=== PATIENT | male | born 1990 | race Caucasian/White ===

== ENCOUNTER 2020-07-16 10:04 | Emergency (ER) | payer SELFPAY ==
[2020-07-16 10:32] VITALS: BP 159/90; PULSE 92; RESP 20; TEMP 37.3; O2SAT 97; BMI 19.3
--- NOTE | 2020-07-16 11:06 | XR_ITS ---
EXAMINATION: XR ELBOW, LEFT XR FOREARM, LEFT XR HAND/WRIST, LEFT CLINICAL INFORMATION: Fall on Ani with pain and swelling to the left elbow, forearm, hand and wrist COMPARISON: None TECHNIQUE: 3 views of the left elbow. 2 views of the left forearm. 4 views of the left hand/wrist FINDINGS: Left elbow: There is no acute fractures seen. There is diffuse soft tissue swelling. There is question of elevation of the anterior fat pad which may represent a small joint effusion at the elbow. There is no elevation of the posterior fat pad. There is suggestion of subtle density anterior to the radial head and coracoid on the lateral view, which could represent ossification of uncertain origin Left forearm: No fracture or cortical disruption. Appropriate alignment. Mild soft tissue swelling. Left hand/wrist: There is no fracture or dislocation. Alignment is anatomic. Carpal rows are well aligned. Joint spaces are maintained. The soft tissues are unremarkable. XR/XR forearm LT 2V IMPRESSION: Soft tissue swelling at the left elbow/proximal forearm. Suggestion of a small elbow joint effusion, although no focal fracture is identified at the elbow. Occult fracture must be considered as there is suggestion of subtle ossification anteriorly at the elbow. If indicated CT could be obtained to further evaluate. No fracture or malalignment involving the left hand/wrist.
--- NOTE | 2020-07-16 11:06 | XR_ITS ---
EXAMINATION: XR ELBOW, LEFT XR FOREARM, LEFT XR HAND/WRIST, LEFT CLINICAL INFORMATION: Fall on Ani with pain and swelling to the left elbow, forearm, hand and wrist COMPARISON: None TECHNIQUE: 3 views of the left elbow. 2 views of the left forearm. 4 views of the left hand/wrist FINDINGS: Left elbow: There is no acute fractures seen. There is diffuse soft tissue swelling. There is question of elevation of the anterior fat pad which may represent a small joint effusion at the elbow. There is no elevation of the posterior fat pad. There is suggestion of subtle density anterior to the radial head and coracoid on the lateral view, which could represent ossification of uncertain origin Left forearm: No fracture or cortical disruption. Appropriate alignment. Mild soft tissue swelling. Left hand/wrist: There is no fracture or dislocation. Alignment is anatomic. Carpal rows are well aligned. Joint spaces are maintained. The soft tissues are unremarkable. XR/XR hand wrist LT IMPRESSION: Soft tissue swelling at the left elbow/proximal forearm. Suggestion of a small elbow joint effusion, although no focal fracture is identified at the elbow. Occult fracture must be considered as there is suggestion of subtle ossification anteriorly at the elbow. If indicated CT could be obtained to further evaluate. No fracture or malalignment involving the left hand/wrist.
--- NOTE | 2020-07-16 11:06 | XR_ITS ---
EXAMINATION: XR ELBOW, LEFT XR FOREARM, LEFT XR HAND/WRIST, LEFT CLINICAL INFORMATION: Fall on Ani with pain and swelling to the left elbow, forearm, hand and wrist COMPARISON: None TECHNIQUE: 3 views of the left elbow. 2 views of the left forearm. 4 views of the left hand/wrist FINDINGS: Left elbow: There is no acute fractures seen. There is diffuse soft tissue swelling. There is question of elevation of the anterior fat pad which may represent a small joint effusion at the elbow. There is no elevation of the posterior fat pad. There is suggestion of subtle density anterior to the radial head and coracoid on the lateral view, which could represent ossification of uncertain origin Left forearm: No fracture or cortical disruption. Appropriate alignment. Mild soft tissue swelling. Left hand/wrist: There is no fracture or dislocation. Alignment is anatomic. Carpal rows are well aligned. Joint spaces are maintained. The soft tissues are unremarkable. XR/XR elbow LT min 3V IMPRESSION: Soft tissue swelling at the left elbow/proximal forearm. Suggestion of a small elbow joint effusion, although no focal fracture is identified at the elbow. Occult fracture must be considered as there is suggestion of subtle ossification anteriorly at the elbow. If indicated CT could be obtained to further evaluate. No fracture or malalignment involving the left hand/wrist.
[2020-07-16] MEDS: Ibuprofen 800 MG TABLET PO (11:32)
--- NOTE | 2020-07-16 11:42 | US_ITS ---
EXAMINATION: DUPLEX VENOUS ULTRASOUND OF THE LEFT UPPER EXTREMITY. CLINICAL HISTORY: History of fall with ongoing pain and swelling of the left arm. Evaluate for DVT. COMPARISON: Left elbow radiographs on 07/16/2020 TECHNIQUE: Grayscale, color and Doppler ultrasound of the deep veins of the left upper extremity were performed. FINDINGS: The left internal jugular, axillary, and brachial veins are easily compressible and demonstrate normal color flow. The left subclavian vein demonstrates normal color flow. Of note, there are duplicated left brachial arteries. The basilic and cephalic veins are easily compressible and demonstrate normal color flow. The radial and ulnar veins are patent. There is a moderate-sized heterogeneous left elbow effusion. US/US venous duplex UE LT IMPRESSION: No evidence of deep venous thrombosis involving the left upper extremity. Moderate, heterogeneous left elbow effusion.
--- NOTE | 2020-07-16 11:45 | ED.EXTPRO ---
HPI - Extremity Problem General Chief complaint: Extremity Injury, Upper Stated complaint: FELL DOWN STAIRS ELBOW AND HAND PAIN Time Seen by Provider: 07/16/20 11:05 Source: patient Mode of arrival: ambulatory Limitations: no limitations History of Present Illness HPI Narrative: A 30-year-old male presenting to the ED with complaints of left elbow / forearm/ wrist /hand pain after he fell down the stairs on Monday. Reports he tripped over a shoe went down 12 stairs while on his left arm. Denies head injury or loss of consciousness. Denies being on any blood thinners. Denies any additional complaints or concerns or injuries at this time. Related Data Previous Rx's Medication Instructions Recorded ibuprofen 800 mg PO Q8H PRN #14 tab 07/16/20 oxycodone-acetaminophen [Percocet] 1 tab PO Q6H PRN #14 tab 07/16/20 Allergies Allergy/AdvReac Type Severity Reaction Status Date / Time No Known Allergies Allergy Verified 07/16/20 11:06 Review of Systems Review of Systems: Constitutional : No changes in activity, No lethargy, No recent prior head injury, No agitation, No increased fussiness ENT/Mouth : No Ear Pain, No Nasal discharge/drainage Eyes: No Eye Pain, No Swelling, No Redness, No Foreign Body, No Vision Changes Cardiovascular : No Chest Pain, No SOB Respiratory : No Cough Gastrointestinal : No Nausea, No Vomiting, No abdominal Pain Genitourinary : No Dysuria, No Urinary Frequency, No Urinary Incontinence, No Urgency, No Flank Pain Musculoskeletal : + joint pain, No neck stiffness, No back pain/injury Skin : No lacerations Neuro : No unsteady gait, No Paresthesias, No Loss of Consciousness, No altered mental status, No Headache Yes all other systems are reviewed and are negative [facility] Past Medical History Attestation statement: The following information was validated with the patient. Medical History No known health problems Social History Social History Advance Directives: No Advance Directives Information Provided: No Physical Exam Vital Signs: Vital Signs: Last Vital Signs Temp 99.1 F 07/16/20 10:32 Pulse 92 07/16/20 10:32 Resp 20 07/16/20 10:32 BP 159/90 H 07/16/20 10:32 Pulse Ox 97 07/16/20 10:32 Body Mass Index 19.3 vital signs have been reviewed as normal and appeared to be correct. Blood pressure normal. Heart rate normal. Respiration rate normal. Temperature normal. Oxygen saturation normal. Appearance: Alert. Oriented X3. No acute distress. Head: Normal external exam. Normocephalic. Atraumatic. No Steen signs noted. No raccoon eyes noted Eyes: PERRLA. EOMI. Conjunctiva and sclera normal. Eyelids normal. ENT: EAC normal. TM's Normal. Pharynx normal. Uvula midline. Moist mucous membranes. No trismus noted. No drooling noted. No muffled voice noted. Neck: Normal inspection. Neck supple. FROM. No adenopathy. Thyroid Normal. No meningeal signs. No neck mass noted. CVS: Normal heart rate and rhythm. Heart sound normal. No murmurs noted. Pulses normal throughout. Respiratory: No respiratory distress. Painless inspiration. Breath sounds normal. No wheezes/rales/rhonchi noted. Chest nontender. No accessory muscle usage noted or decreased air movement noted. Abdomen: Soft and nontender. Bowel sounds normal in all 4 quadrants. No distention noted. No organomegaly noted. No visible injury noted. Back: No CVA tenderness. Full range of motion noted. Skin: Skin warm and dry. Normal skin color. Normal skin turgor. No rashes/lesions/lacerations noted. Extremities: left elbow c moderate Soft tissue swelling, ecchymosis, and tenderness to palpation diffusely around the entire elbow medially and laterally especially at the olecranon. With limited range of motion for flexion and extension due to pain. Tender to palpation of proximal and distal forearm with ecchymosis noted no obvious deformities noted. Tender to palpation of left wrist at the anatomical snuffbox with moderate soft tissue swelling and ecchymosis noted with limited range of motion due to pain. No obvious deformities. All other Extremities exhibit normal range of motion and nontender. Neuro: Oriented X 3. No motor deficit. No sensory deficit. Reflexes normal. Course Course Course Narrative: 11:10am - 30-year-old male presenting to the ED with complaints of left elbow / forearm/ wrist /hand pain after he fell down the stairs on Monday. - obtain x-rays of left elbow/ forearm /wrist / hand if negative will obtain an ultrasound to evaluate for possible DVT if negative will place in a splint sugar-tong and instructions to follow-up with orthopedics and symptomatic treatment. Patient understands agrees with this plan. Procedures Orthopedic Splinting/Casting Injury #1: Side: left Upper Extremity Injury Location: upper arm Upper Extremity Immobilizer: sling/shoulder immobilizer MDM - Extremity (Nontraumatic) Medical Records Attestation: I reviewed the patient's medical records. Medical records narrative: FINDINGS: Left elbow: There is no acute fractures seen. There is diffuse soft tissue swelling. There is question of elevation of the anterior fat pad which may represent a small joint effusion at the elbow. There is no elevation of the posterior fat pad. There is suggestion of subtle density anterior to the radial head and coracoid on the lateral view, which could represent ossification of uncertain origin Left forearm: No fracture or cortical disruption. Appropriate alignment. Mild soft tissue swelling. Left hand/wrist: There is no fracture or dislocation. Alignment is anatomic. Carpal rows are well aligned. Joint spaces are maintained. The soft tissues are unremarkable. XR/XR elbow LT min 3V IMPRESSION: Soft tissue swelling at the left elbow/proximal forearm. Suggestion of a small elbow joint effusion, although no focal fracture is identified at the elbow. Occult fracture must be considered as there is suggestion of subtle ossification anteriorly at the elbow. If indicated CT could be obtained to further evaluate. No fracture or malalignment involving the left hand/wrist. Imaging Data venous duplex to left upper arm : Attestation: I personally reviewed and interpreted this imaging study as follows: Radiologist's impression: FINDINGS: The left internal jugular, axillary, and brachial veins are easily compressible and demonstrate normal color flow. The left subclavian vein demonstrates normal color flow. Of note, there are duplicated left brachial arteries. The basilic and cephalic veins are easily compressible and demonstrate normal color flow. The radial and ulnar veins are patent. There is a moderate-sized heterogeneous left elbow effusion. US/US venous duplex UE LT IMPRESSION: No evidence of deep venous thrombosis involving the left upper extremity. Moderate, heterogeneous left elbow effusion. Discharge Plan Discharge Clinical Impression: Sprain and strain of wrist, Fall (on) (from) other stairs and steps, initial encounter, Ecchymosis Elbow sprain Qualifiers: Encounter type: initial encounter Laterality: left Qualified Code(s): S53.402A - Unspecified sprain of left elbow, initial encounter Forearm sprain Qualifiers: Encounter type: initial encounter Laterality: left Qualified Code(s): S63.502A - Unspecified sprain of left wrist, initial encounter Hand sprain Qualifiers: Encounter type: initial encounter Laterality: left Qualified Code(s): S63.92XA - Sprain of unspecified part of left wrist and hand, initial encounter Joint effusion of elbow Qualifiers: Laterality: left Qualified Code(s): M25.422 - Effusion, left elbow Patient Disposition: Home, Self-Care Instructions: How to Use a Sling (ED), Elbow Sprain (ED) Prescriptions: New ibuprofen 800 mg tablet 800 mg PO Q8H PRN (Reason: pain) Qty: 14 RF: 0 oxycodone-acetaminophen [Percocet] 5-325 mg tablet 1 tab PO Q6H PRN (Reason: pain) Qty: 14 RF: 0 Referrals: Kita Baker MD [Physician] - 1 week Stand Alone Forms: Work/School Release Print Language: [place]ian
== END 2020-07-16 13:22 | disposition home or self-care (01) ==
PROVIDERS: Emergency Provider Emergency Medicine
DX: S53.402A Unspecified sprain of left elbow, initial encounter (principal); S63.502A Unspecified sprain of left wrist, initial encounter; S63.92XA Sprain of unspecified part of left wrist and hand, initial encounter; S60.212A Contusion of left wrist, initial encounter; S60.211A Contusion of right wrist, initial encounter; M79.602 Pain in left arm; M25.422 Effusion, left elbow; W10.9XXA Fall (on) (from) unspecified stairs and steps, initial encounter; Y93.9 Activity, unspecified; Y92.9 Unspecified place or not applicable; Y99.9 Unspecified external cause status
CPT/HCPCS: 29105; 73080; 73090; 73110; 73130; 93971; 99283; 99284

== ENCOUNTER 2022-01-28 17:24 | Emergency (ER) | payer SELFPAY ==
--- NOTE | 2022-01-28 | ECG_ITS ---
Test Reason : CHEST PAIN Blood Pressure : / mmHG Vent. Rate : 096 BPM Atrial Rate : 096 BPM P-R Int : 148 ms QRS Dur : 098 ms QT Int : 356 ms P-R-T Axes : 074 069 053 degrees QTc Int : 449 ms Sinus rhythm with occasional Premature ventricular complexes Incomplete right bundle branch block Nonspecific T wave abnormality Abnormal ECG No previous ECGs available Referred By: Generic ED Physician Electronically Signed By:COLETTE MAR MD
--- NOTE | ~2022-01-28 | XR_ITS ---
EXAMINATION: XR CHEST CLINICAL INFORMATION: Chest pain. COMPARISON: None TECHNIQUE: Frontal view of the chest was obtained. FINDINGS: No significant abnormality is noted involving the heart, lungs, mediastinum, bony thorax or soft tissues. XR/XR chest 1V IMPRESSION: No acute cardiopulmonary process.
[2022-01-28 17:33] VITALS: BP 153/118; PULSE 93; RESP 16; TEMP 36.7; O2SAT 97; BMI 21.9
[2022-01-28 17:49] LABS: Basophils Absolute Auto 0.1 X10*3/uL (0.0-0.2); Basophils Percent Auto 0.4 % (0-2); Eosinophils Absolute Auto 0.1 X10*3/uL (0.0-0.4); Eosinophils Percent Auto 0.5 % (0-4); Hematocrit 41.2 % (42.0-52.0); Imm Gran Abs Auto 0.03 X10*3/uL (0.00-0.03); Imm Gran Pct Auto 0.3 % (0.0-0.4); Lymphocytes Absolute Auto 1.1 X10*3/uL (1.2-4.9); Lymphocytes Percent Auto 9.2 % (20-40); MANUAL DIFF FLAG SCAN; Mean Corpuscular HGB Conc 36.4 g/dl (31.0-36.0); Mean Corpuscular Hemoglobin 29.8 pg (27.0-33.0); Mean Corpuscular Volume 81.7 fL (80.0-98.0); Mean Platelet Volume 9.9 fL (9.4-12.4); Monocytes Absolute Auto 1.6 X10*3/uL (0.1-1.2); Monocytes Percent Auto 13.7 % (2-11); Neutrophils Absolute Auto 8.8 x10*3/uL (2.0-8.3); Neutrophils Percent Auto 75.9 % (45-73); Platelet Count 267 X10*3/uL (160-400); Red Blood Count 5.04 X10*6/uL (4.60-5.80); SCAN SMEAR FLAG 1; White Blood Count 11.6 X10*3/uL (4.8-10.8)
[2022-01-28 18:04] VITALS: BP 167/103; PULSE 97; RESP 15; TEMP 37.2; O2SAT 99
[2022-01-28 18:12] LABS: Alanine Aminotransferase 45 U/L (0-40); Albumin Level 4.2 g/dL (3.5-5.0); Alkaline Phosphatase 78 U/L (39-117); Anion Gap 13 (12-20); Aspartate Amino Transferase 69 U/L (5-37); Bilirubin Total 1.3 mg/dL (0.0-1.0); Blood Urea Nitrogen 8 mg/dL (9-16); Calcium 10.2 mg/dL (8.4-10.2); Carbon Dioxide 27 mmol/L (22-29); Chloride 102 mmol/L (96-108); Creatinine Clr Calc Pharmacy 118.8; Estimated Glomerular Filt Rate > 60; Glucose Random 101 mg/dL (60-115); Potassium 3.9 mmol/L (3.3-5.1); Sodium 138 mmol/L (135-145); Total Protein 7.2 g/dL (6.5-8.0)
[2022-01-28 18:16] LABS: Troponin-I High Sensitivity < 3.5 ng/L (<3.5-35.0)
[2022-01-28 18:25] LABS: SLIDE REVIEW VERIFIED
--- NOTE | 2022-01-28 18:38 | ED_ITS ---
HPI - Arrhythmia/Palpitations General Chief Complaint: Chest Pain Stated Complaint: Unsteady/Rapid heart beat Time Seen by Provider: 01/28/22 18:26 Source: patient Mode of arrival: ambulatory Limitations: no limitations History of Present Illness HPI narrative: Patient's T of cocaine, alcohol, Adderall abuse with history of anxiety caffeine intake been complaining of palpitation for last 2 days says he had cocaine about 13 days ago and took Adderall about 4 days ago patient feel anxious heart rate goes fast no syncope no chest pain no shortness of breath last for few minutes Related Data Previous Rx's Medication Instructions Recorded ibuprofen 800 mg tablet 800 mg PO Q8H PRN #14 tab 07/16/20 oxycodone-acetaminophen 5 mg-325 1 tab PO Q6H PRN #14 tab 07/16/20 mg tablet (Percocet) Allergies Allergy/AdvReac Type Severity Reaction Status Date / Time No Known Allergies Allergy Verified 07/16/20 11:06 Review of Systems Review of Systems: Yes all other systems are reviewed and are negative PMFSH Past Medical History Medical History No known health problems Social History Social History Alcohol intake: current Alcohol intake frequency: 0-2 drinks per day Alcohol type: beer Patient Tobacco Use Status: Current everyday Tobacco user Smoked in Last 30 Days: Yes Substance Use Type: Crack/Cocaine, Marijuana and Other Substance Use Frequency: Occasionally Any prior treatment program specific to substance use: No Advance Directives: No Advance Directives Information Provided: No Physical Exam Vital Signs: Vital Signs: Last Vital Signs Temp 99.0 F 01/28/22 18:04 Pulse 97 01/28/22 18:04 Resp 15 01/28/22 18:04 BP 167/103 H 01/28/22 18:04 Pulse Ox 99 01/28/22 18:04 BMI result Body Mass Index 21.9 Appearance: Alert. Oriented X3. No acute distress. Anxious Eyes: PERRL ENT: Pharynx normal. Oral Mucosa moist Neck: Normal inspection. Neck supple. CVS: Normal heart rate and rhythm. Pulses normal. Respiratory: No respiratory distress. Equal air entry bilateral, no wheezing/rales/rhonchi Abdomen: Soft and nontender. Bowel sounds are present, no mass palpable, no CVA tenderness Skin: Skin warm and dry. Normal skin color. Normal skin turgor. Extremities: No lower extremity edema. No calf tenderness Neuro: Oriented X 3. No motor deficit. MDM - Arrhythmia/Palpitations MDM Narrative Medical decision making narrative: During stay in the ER no cardiac arrhythmias noticed patient is resting patient advised not to use alcohol/caffeine/Adderall/cocaine and follow-up with PCP for further monitoring Lab Data Attestation: I reviewed the patient's lab results. Result diagrams: 01/28/22 17:41 01/28/22 17:41 Labs: Lab Results 01/28/22 01/28/22 01/28/22 Range/Units 17:41 17:41 17:41 WBC 11.6 H (4.8-10.8) X10*3/uL RBC 5.04 (4.60-5.80) X10*6/uL Hgb 15.0 (14.0-18.0) g/dl Hct 41.2 L (42.0-52.0) % MCV 81.7 (80.0-98.0) fL MCH 29.8 (27.0-33.0) pg MCHC 36.4 H (31.0-36.0) g/dl RDW 13.0 (11.0-16.0) % Plt Count 267 (160-400) X10*3/uL MPV 9.9 (9.4-12.4) fL Immature Gran % (Auto) 0.3 (0.0-0.4) % Neut % (Auto) 75.9 H (45-73) % Lymph % (Auto) 9.2 L (20-40) % [place] % (Auto) 13.7 H (2-11) % Eos % (Auto) 0.5 (0-4) % Baso % (Auto) 0.4 (0-2) % Lymph # (Auto) 1.1 L (1.2-4.9) X10*3/uL [place] # (Auto) 1.6 H (0.1-1.2) X10*3/uL Eos # (Auto) 0.1 (0.0-0.4) X10*3/uL Baso # (Auto) 0.1 (0.0-0.2) X10*3/uL Abs Immat Gran (auto) 0.03 (0.00-0.03) X10*3/uL Absolute Neuts (auto) 8.8 H (2.0-8.3) x10*3/uL Absolute Nucleated RBC 0.000 (0.0-0.012) X10*3/uL Nucleated RBC % (auto) 0.0 (0.0-0.2) /100WBC Smear Tech's Comments VERIFIED Sodium 138 (135-145) mmol/L Potassium 3.9 (3.3-5.1) mmol/L Chloride 102 (96-108) mmol/L Carbon Dioxide 27 (22-29) mmol/L Anion Gap 13 (12-20) BUN 8 L (9-16) mg/dL Creatinine 0.95 (0.5-1.4) mg/dL Estim Creat Clear Calc 118.8 Estimated GFR > 60 Random Glucose 101 (60-115) mg/dL Calcium 10.2 (8.4-10.2) mg/dL Total Bilirubin 1.3 H (0.0-1.0) mg/dL AST 69 H (5-37) U/L ALT 45 H (0-40) U/L Alkaline Phosphatase 78 (39-117) U/L Troponin I High Sens < 3.5 (<3.5-35.0) ng/L Total Protein 7.2 (6.5-8.0) g/dL Albumin 4.2 (3.5-5.0) g/dL Ethyl Alcohol mg/dL COVID-19 (NIMISHA) (Negative) COVID-19 Clin Com 01/28/22 01/28/22 Range/Units 18:53 19:05 WBC (4.8-10.8) X10*3/uL RBC (4.60-5.80) X10*6/uL Hgb (14.0-18.0) g/dl Hct (42.0-52.0) % MCV (80.0-98.0) fL MCH (27.0-33.0) pg MCHC (31.0-36.0) g/dl RDW (11.0-16.0) % Plt Count (160-400) X10*3/uL MPV (9.4-12.4) fL Immature Gran % (Auto) (0.0-0.4) % Neut % (Auto) (45-73) % Lymph % (Auto) (20-40) % [place] % (Auto) (2-11) % Eos % (Auto) (0-4) % Baso % (Auto) (0-2) % Lymph # (Auto) (1.2-4.9) X10*3/uL [place] # (Auto) (0.1-1.2) X10*3/uL Eos # (Auto) (0.0-0.4) X10*3/uL Baso # (Auto) (0.0-0.2) X10*3/uL Abs Immat Gran (auto) (0.00-0.03) X10*3/uL Absolute Neuts (auto) (2.0-8.3) x10*3/uL Absolute Nucleated RBC (0.0-0.012) X10*3/uL Nucleated RBC % (auto) (0.0-0.2) /100WBC Smear Tech's Comments Sodium (135-145) mmol/L Potassium (3.3-5.1) mmol/L Chloride (96-108) mmol/L Carbon Dioxide (22-29) mmol/L Anion Gap (12-20) BUN (9-16) mg/dL Creatinine (0.5-1.4) mg/dL Estim Creat Clear Calc Estimated GFR Random Glucose (60-115) mg/dL Calcium (8.4-10.2) mg/dL Total Bilirubin (0.0-1.0) mg/dL AST (5-37) U/L ALT (0-40) U/L Alkaline Phosphatase (39-117) U/L Troponin I High Sens (<3.5-35.0) ng/L Total Protein (6.5-8.0) g/dL Albumin (3.5-5.0) g/dL Ethyl Alcohol < 10 mg/dL COVID-19 (NIMISHA) Negative (Negative) COVID-19 Clin Com See Note ECG Data Attestation: I personally reviewed and interpreted this ECG as follows: Interpretation: Normal sinus rhythm heart rate 96 beats per minute occasional PVC, normal axis no acute ST T wave changes no acute ischemia Discharge Plan Discharge Clinical Impression: Heart palpitations Patient Disposition: Home, Self-Care Instructions: Heart Palpitations (ED) Additional Instructions: Decrease caffeine intake do not use cocaine/alcohol/adderall Follow-up with PCP for further evaluation including Holter monitoring for palpitation Prescriptions: No Action ibuprofen 800 mg tablet 800 mg PO Q8H PRN (Reason: pain) Qty: 14 0RF oxycodone-acetaminophen [Percocet] 5-325 mg tablet 1 tab PO Q6H PRN (Reason: pain) Qty: 14 0RF Referrals: Lois Jones MD [Physician] - 1 week
[2022-01-28] MEDS: 0.9 % Sodium Chloride 1,000 ML 999 ML IV (19:03)
[2022-01-28 19:16] LABS: COVID-19 Test Negative (Negative); IDNOW Serial# 16C4AD1C
[2022-01-28 19:30] LABS: Ethanol < 10 mg/dL
== END 2022-01-28 20:57 | disposition home or self-care (01) ==
PROVIDERS: Emergency Provider Internal Medicine
DX: R00.2 Palpitations (principal); Z20.822 Contact with and (suspected) exposure to COVID-19
CPT/HCPCS: 36415; 71045; 80053; 82077; 84484; 85025; 87635; 93005; 96361; 96374; 99284

== ENCOUNTER 2022-02-28 04:48 | Emergency (ER) | payer SELFPAY ==
[2022-02-28 05:13] VITALS: BP 155/97; PULSE 107; RESP 17; TEMP 36.8; O2SAT 96; BMI 22.0
--- NOTE | 2022-02-28 05:28 | PC.NURSE ---
Dr Garcia to bedside. Pt's scalp irrigated; ~1inch lac noted to posterior aspect of head. Dr Garcia placed multiple alvin to pt's scalp. Pt tolerated procedure without incidence
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
[2022-02-28] MEDS: Diphth,Pertus(ACell),Tet Adult 0.5 ML SYRINGE IM (05:35)
== END 2022-02-28 05:52 | disposition home or self-care (01) ==
PROVIDERS: Emergency Provider Emergency Medicine
DX: F10.920 Alcohol use, unspecified with intoxication, uncomplicated (principal); Y90.9 Presence of alcohol in blood, level not specified; S01.01XA Laceration without foreign body of scalp, initial encounter; X99.0XXA Assault by sharp glass, initial encounter; F17.200 Nicotine dependence, unspecified, uncomplicated; Y93.01 Activity, walking, marching and hiking; Y92.480 Sidewalk as the place of occurrence of the external cause; Y99.8 Other external cause status
CPT/HCPCS: 12001; 90471; 90715; 99282; 99283; 99284

== ENCOUNTER 2022-03-10 19:03 | Emergency (ER) | payer SELFPAY | END 2022-03-10 21:04 | disposition left against medical advice (07) | PROVIDERS: Emergency Provider Emergency Medicine | DX: Z48.02 Encounter for removal of sutures (principal) ==

== ENCOUNTER 2022-03-11 21:44 | Emergency (ER) | payer SELFPAY ==
[2022-03-11 21:48] VITALS: BP 155/99; PULSE 93; RESP 18; TEMP 36.2; O2SAT 98; BMI 23.3
--- NOTE | 2022-03-12 00:42 | ED_ITS ---
HPI - Recheck/Abnormal Lab/Rx General Chief Complaint: Recheck/Abnormal Lab/Rx Stated Complaint: suture removal Time Seen by Provider: 03/12/22 00:33 Source: patient Mode of arrival: ambulatory Limitations: no limitations History of Present Illness HPI narrative: Patient to the emergency room for staple removal. Eleven days ago patient had a head injury, had 4 alvin applied. Patient has been healing well since then. Patient denies any symptoms. Patient states that the alvin are starting to itch, but reports no pain, no fever or chills. Related Data Previous Rx's Medication Instructions Recorded ibuprofen 800 mg tablet 800 mg PO Q8H PRN pain #14 tabs 07/16/20 oxycodone-acetaminophen 5 mg-325 1 tab PO Q6H PRN pain #14 tabs 07/16/20 mg tablet (Percocet) Allergies Allergy/AdvReac Type Severity Reaction Status Date / Time No Known Allergies Allergy Verified 07/16/20 11:06 Review of Systems Review of Systems: Constitutional : No Weight loss, No Fever, No Chills, No Night Sweats, No Fatigue, No Malaise ENT/Mouth : No Hearing loss, No Ear Pain, No Nasal Congestion, No Sinus Pain, No Hoarseness, No sore throat, No Rhinorrhea, No Swallowing Difficulty Eyes: No Eye Pain, No Swelling, No Redness, No Foreign Body, No Discharge, No Vision Changes Cardiovascular : No Chest Pain, No SOB, No Dyspnea on Exertion, No Orthopnea, No Edema, No Palpitations Respiratory : No Cough, No Sputum, No Wheezing, No Smoke Exposure, No Dyspnea Gastrointestinal : No Nausea, No Vomiting, No Diarrhea, No Constipation, No abdominal Pain, No Hematochezia, No Melena Genitourinary : no irregular bleeding, No Dysuria, No Urinary Frequency, No Hematuria, No Urinary Incontinence, No Urgency, No Flank Pain, No Urinary Flow Changes, No Hesitancy Musculoskeletal : No joint pain, No Myalgias, No Joint Swelling Skin : Healing scalp laceration Neuro : No Weakness, No Numbness, No Paresthesias, No Loss of Consciousness, No Dizziness, No Headache Psych : No Anxiety/Panic, No Depression, No SI/HI/AH/VH, No Social Issues, Heme/Lymph: No Bruising, No Bleeding,No Lymphadenopathy Endocrine : No Polyuria, No Polydipsia, No Temperature Intolerance PMFSH Past Medical History Medical History No known health problems Social History Social History Alcohol intake: current Alcohol intake frequency: 0-2 drinks per day Alcohol ty pe: beer Patient Tobacco Use Status: Current everyday Tobacco user Substance Use Type: Crack/Cocaine, Marijuana and Other Physical Exam Vital Signs: Vital Signs: Last Vital Signs Temp 97.2 F 03/11/22 21:48 Pulse 93 03/11/22 21:48 Resp 18 03/11/22 21:48 BP 155/99 H 03/11/22 21:48 Pulse Ox 98 03/11/22 21:48 O2 Del Method 03/11/22 21:48 BMI result Body Mass Index 23.3 Const: Other: Appearance: Alert. Oriented X3. No acute distress. Eyes: Pupils equal, round and reactive to light. ENT: Pharynx normal. Neck: Normal inspection. Neck supple. No lymph nodes noted. No crepitus CVS: Normal heart rate and rhythm. Pulses normal. Normal S1 and S2 Respiratory: No respiratory distress. Breath sounds normal. No Wheezing. No rales Abdomen: Soft and nontender. No rigidity. No distention. Skin: Skin warm and dry. Scalp is seen, there is dry blood around the alvin, erythema Extremities: No lower extremity edema. No Lacerations. No Rash Neuro: Oriented X 3. No motor deficit. No sensory deficit. Moving all extremities. No slurred speech. CN 2 through 12 grossly intact Psych: calm, cooperative, normal affect Course Course Course Narrative: For alvin were removed uneventfully Discharge Plan Discharge Clinical Impression: Removal of staple Patient Disposition: Home, Self-Care Instructions: Head Laceration (ED) Additional Instructions: Please follow-up with your primary care physician tomorrow. If you have any worsening or new symptoms, please return to the emergency room or call 911 Prescriptions: No Action ibuprofen 800 mg tablet 800 mg PO Q8H PRN (Reason: pain) Qty: 14 0RF oxycodone-acetaminophen [Percocet] 5-325 mg tablet 1 tab PO Q6H PRN (Reason: pain) Qty: 14 0RF
== END 2022-03-12 00:51 | disposition home or self-care (01) ==
PROVIDERS: Emergency Provider Emergency Medicine
DX: Z48.02 Encounter for removal of sutures (principal); S01.01XD Laceration without foreign body of scalp, subsequent encounter; X58.XXXD Exposure to other specified factors, subsequent encounter
CPT/HCPCS: 99282; 99283

== ENCOUNTER 2024-03-07 15:00 | Emergency (ER) | payer OTHER, SELFPAY ==
[2024-03-07 15:21] VITALS: BP 138/91; PULSE 115; RESP 16; TEMP 36.6; O2SAT 95; BMI 21.2
--- NOTE | 2024-03-07 15:29 | ECG_ITS ---
Test Reason : PALPITATIONS Blood Pressure : / mmHG Vent. Rate : 106 BPM Atrial Rate : 106 BPM P-R Int : 156 ms QRS Dur : 102 ms QT Int : 338 ms P-R-T Axes : -12 012 007 degrees QTc Int : 448 ms Sinus tachycardia Otherwise normal ECG When compared with ECG of 28-JAN-2022 17:34, Premature ventricular complexes are no longer Present Questionable change in QRS axis Referred By: Generic ED Physician Electronically Signed By:Prakash Padilla
--- NOTE | 2024-03-07 15:46 | ED.PSYCH ---
HPI - Psych General Chief Complaint: ETOH/Substance Use Stated Complaint: intoxicated, depression, mood swings Time Seen by Provider: 03/07/24 16:29 Source: patient Mode of arrival: ambulatory Limitations: no limitations History of Present Illness ED Provider: Dr. Mariel Ag HPI Narrative: Patient comes to the emergency room complaining alcohol intoxication. Patient was brought here by a friend, patient states that he is stool to be drinking heavily and wants to go to detox. Patient admits to having increasing depression, no SI or HI. No medical complaints Related Data Previous Rx's ?Medication ?Instructions ?Recorded ibuprofen 800 mg tablet 800 mg PO Q8H PRN pain #14 tabs 07/16/20 oxycodone-acetaminophen 5 mg-325 1 tab PO Q6H PRN pain #14 tabs 07/16/20 mg tablet (Percocet) Allergies Allergy/AdvReac Type Severity Reaction Status Date / Time No Known Allergies Allergy Verified 03/07/24 15:28 Review of Systems Review of Systems: Constitutional : No Weight loss, No Fever, No Chills, No Night Sweats, No Fatigue, No Malaise ENT/Mouth : No Hearing loss, No Ear Pain, No Nasal Congestion, No Sinus Pain, No Hoarseness, No sore throat, No Rhinorrhea, No Swallowing Difficulty Eyes: No Eye Pain, No Swelling, No Redness, No Foreign Body, No Discharge, No Vision Changes Cardiovascular : No Chest Pain, No SOB, No Dyspnea on Exertion, No Orthopnea, No Edema, No Palpitations Respiratory : No Cough, No Sputum, No Wheezing, No Smoke Exposure, No Dyspnea Gastrointestinal : No Nausea, No Vomiting, No Diarrhea, No Constipation, No abdominal Pain, No Hematochezia, No Melena Genitourinary : no irregular bleeding, No Dysuria, No Urinary Frequency, No Hematuria, No Urinary Incontinence, No Urgency, No Flank Pain, No Urinary Flow Changes, No Hesitancy Musculoskeletal : No joint pain, No Myalgias, No Joint Swelling Skin : No Skin Lesions, No rash Neuro : No Weakness, No Numbness, No Paresthesias, No Loss of Consciousness, No Dizziness, No Headache Psych : No Anxiety/Panic, complaining of increasing Depression, No SI/HI/AH/VH, admits to alcohol abuse Heme/Lymph: No Bruising, No Bleeding,No Lymphadenopathy Endocrine : No Polyuria, No Polydipsia, No Temperature Intolerance [facility] Past Medical History Medical History (Updated 03/08/24 @ 11:59 by Kacy Hernandez DO) Alcohol dependence Social History Social History Unable to assess alcohol history related to: Unknown Alcohol intake: current Alcohol intake frequency: 3 or more drinks per day Alcohol type: beer Patient Tobacco Use Status: Current everyday Tobacco user Smoked in Last 30 Days: Yes Use of substances other than those prescribed or required for medical reasons: Yes Substance Use Type: Marijuana Substance Use Frequency: Occasionally Last Used Substance: Days (ago) Any prior treatment program specific to substance use: No Advance Directives: No Advance Directives Information Provided: No Do you have a plan to hurt others: No Plan Physical Exam Vital Signs: Vital Signs: Last Vital Signs Temp 99 F 03/08/24 08:17 Pulse 76 03/08/24 08:17 Resp 16 03/08/24 08:17 BP 130/86 03/08/24 08:17 Pulse Ox 96 03/08/24 08:17 O2 Del Method Room Air 03/08/24 08:17 BMI result Body Mass Index 21.2 Const: Other: Appearance: Alert. Oriented X3. No acute distress. Coherent Eyes: Pupils equal, round and reactive to light. ENT: Pharynx normal. Neck: Normal inspection. Neck supple. No lymph nodes noted. No crepitus CVS: Normal heart rate and rhythm. Pulses normal. Normal S1 and S2 Respiratory: No respiratory distress. Breath sounds normal. No Wheezing. No rales Abdomen: Soft and nontender. No rigidity. No distention. Skin: Skin warm and dry. Normal skin color. Normal skin turgor. Extremities: No lower extremity edema. No Lacerations. No Rash Neuro: Oriented X 3. No motor deficit. No sensory deficit. Moving all extremities. No slurred speech. CN 2 through 12 grossly intact Psych: calm, cooperative, normal affect Course Course Course Narrative: This is a Rapid Medical Examination (RME) performed by David Mendoza PA-C in triage. Full HPI, ROS, assessment and treatment plan per primary provider in the Main ED. 33 yo male with history of ETOH use disorder who presents to the ER seeking detox. admits to drinking heavily over the last several weeks. not suicidal or homocidal but admits to worsening depression. steady on his feet. Plan: medical clearance and CARE team for detox placement Reevaluation(s) Reevaluation #1: Physician observation continued. VS stable, no acute events overnight pending addiction medicine team input. SUZIE 03/08/24 Reevaluation #2: observation care revealed that the patient does NOT meet psychiatric necessity for hospitalization. final disposition discussed with the patient. The patient completed observation care at 12pm. Total time in observation care was 9 hours. cleared by addiction medicine Medications Administered Discontinued Medications Generic Name Dose Route Start Last Admin Trade Name Jazmine PRN Reason Stop Dose Admin Ibuprofen 600 mg 03/08/24 11:44 03/08/24 11:46 Ibuprofen 600 Mg Tablet PO 03/08/24 11:45 600 mg ONCE ONE Administration Medical Decision Making Medical Decision Making [facility] Narrative: My interpretation of labs, normal hematology, at baseline chemistry, magnesium 2.3, urine toxicology negative, EtOH 352 -patient is here voluntarily, seeking detox -metabolize to freedom -once sober, the care team can help the patient find a bed for detox Differential Diagnosis Differential Diagnoses: The differential diagnosis associated with the presentation includes (Alcohol intoxication, alcohol dependence, polysubstance abuse, depression) Admission/Observation Consideration of admission/observation: Escalation of care including admission/observation considered (Patient waiting for the care team determine patient's disposition, patient may need help looking for a detox bed) Lab Data [facility] Lab Attestation statement: I reviewed the patient's lab results. 03/07/24 15:40 03/07/24 15:40 Labs: Lab Results 03/07/24 03/07/24 03/07/24 Range/Units 15:40 16:42 17:10 WBC 10.7 (4.8-10.8) X10*3/uL RBC 5.09 (4.60-5.80) X10*6/uL Hgb 13.9 L (14.0-18.0) g/dl Hct 41.7 L (42.0-52.0) % MCV 81.9 (80.0-98.0) fL MCH 27.3 (27.0-33.0) pg MCHC 33.3 (31.0-36.0) g/dl RDW 12.9 (11.0-16.0) % Plt Count 283 (160-400) X10*3/uL MPV 10.2 (9.4-12.4) fL Immature Gran % (Auto) 0.3 (0.0-0.4) % Neut % (Auto) 66.9 (45-73) % Lymph % (Auto) 21.5 (20-40) % [place] % (Auto) 8.9 (2-11) % Eos % (Auto) 1.7 (0-4) % Baso % (Auto) 0.7 (0-2) % Lymph # (Auto) 2.3 (1.2-4.9) X10*3/uL [place] # (Auto) 1.0 (0.1-1.2) X10*3/uL Eos # (Auto) 0.2 (0.0-0.4) X10*3/uL Baso # (Auto) 0.1 (0.0-0.2) X10*3/uL Abs Immat Gran (auto) 0.03 (0.00-0.03) X10*3/uL Absolute Neuts (auto) 7.2 (2.0-8.3) x10*3/uL Absolute Nucleated RBC 0.000 (0.0-0.012) X10*3/uL Nucleated RBC % (auto) 0.0 (0.0-0.2) /100WBC Smear Tech's Comments VERIFIED Sodium 141 (135-145) mmol/L Potassium 3.6 (3.3-5.1) mmol/L Chloride 107 (96-108) mmol/L Carbon Dioxide 25 (22-29) mmol/L Anion Gap 13 (12-20) BUN 9 (9-16) mg/dL Creatinine 0.85 (0.5-1.4) mg/dL Estim Creat Clear Calc 126.4 Estimated GFR > 60 Random Glucose 150 H (60-115) mg/dL Calcium 9.6 (8.4-10.2) mg/dL Magnesium 2.3 (1.6-2.6) mg/dL Total Bilirubin 0.7 (0.0-1.0) mg/dL AST 82 H (5-37) U/L ALT 50 H (0-40) U/L Alkaline Phosphatase 80 (39-117) U/L Total Protein 7.6 (6.5-8.0) g/dL Albumin 4.5 (3.5-5.0) g/dL Urine Opiates Screen Not Detected (Not Detect) Ur Buprenorphine Scrn Not Detected (Not Detect) ng/mL Ur Oxycodone Screen Not Detected (Not Detect) ng/mL Urine Methadone Screen Not Detected (Not Detect) ng/mL Urine Fentanyl Screen Not Detected (Not Detect) Ur Barbiturates Screen Not Detected (Not Detect) Ur Phencyclidine Scrn Not Detected (Not Detect) Ur Amphetamines Screen Not Detected (Not Detect) U Benzodiazepines Scrn Not Detected (Not Detect) Urine Cocaine Screen Not Detected (Not Detect) U Marijuana (THC) Screen Not Detected (Not Detect) Ethyl Alcohol 352 H* mg/dL Blood Type O Positive Antibody Screen NEGATIVE 03/07/24 Range/Units 17:11 WBC (4.8-10.8) X10*3/uL RBC (4.60-5.80) X10*6/uL Hgb (14.0-18.0) g/dl Hct (42.0-52.0) % MCV (80.0-98.0) fL MCH (27.0-33.0) pg MCHC (31.0-36.0) g/dl RDW (11.0-16.0) % Plt Count (160-400) X10*3/uL MPV (9.4-12.4) fL Immature Gran % (Auto) (0.0-0.4) % Neut % (Auto) (45-73) % Lymph % (Auto) (20-40) % [place] % (Auto) (2-11) % Eos % (Auto) (0-4) % Baso % (Auto) (0-2) % Lymph # (Auto) (1.2-4.9) X10*3/uL [place] # (Auto) (0.1-1.2) X10*3/uL Eos # (Auto) (0.0-0.4) X10*3/uL Baso # (Auto) (0.0-0.2) X10*3/uL Abs Immat Gran (auto) (0.00-0.03) X10*3/uL Absolute Neuts (auto) (2.0-8.3) x10*3/uL Absolute Nucleated RBC (0.0-0.012) X10*3/uL Nucleated RBC % (auto) (0.0-0.2) /100WBC Smear Tech's Comments Sodium (135-145) mmol/L Potassium (3.3-5.1) mmol/L Chloride (96-108) mmol/L Carbon Dioxide (22-29) mmol/L Anion Gap (12-20) BUN (9-16) mg/dL Creatinine (0.5-1.4) mg/dL Estim Creat Clear Calc Estimated GFR Random Glucose (60-115) mg/dL Calcium (8.4-10.2) mg/dL Magnesium (1.6-2.6) mg/dL Total Bilirubin (0.0-1.0) mg/dL AST (5-37) U/L ALT (0-40) U/L Alkaline Phosphatase (39-117) U/L Total Protein (6.5-8.0) g/dL Albumin (3.5-5.0) g/dL Urine Opiates Screen Not Detected (Not Detect) Ur Buprenorphine Scrn Not Detected (Not Detect) ng/mL Ur Oxycodone Screen Not Detected (Not Detect) ng/mL Urine Methadone Screen Not Detected (Not Detect) ng/mL Urine Fentanyl Screen Not Detected (Not Detect) Ur Barbiturates Screen Not Detected (Not Detect) Ur Phencyclidine Scrn Not Detected (Not Detect) Ur Amphetamines Screen Not Detected (Not Detect) U Benzodiazepines Scrn Not Detected (Not Detect) Urine Cocaine Screen Not Detected (Not Detect) U Marijuana (THC) Screen Not Detected (Not Detect) Ethyl Alcohol mg/dL Blood Type Antibody Screen Discharge Plan Discharge Clinical Impression: Alcohol dependence Patient Disposition: Home, Self-Care Instructions: Alcohol Dependence (ED) Additional Instructions: return for worsening symptoms or concerns. Prescriptions: No Action ibuprofen 800 mg tablet 800 mg PO Q8H PRN (Reason: pain) Qty: 14 0RF oxycodone-acetaminophen [Percocet] 5-325 mg tablet 1 tab PO Q6H PRN (Reason: pain) Qty: 14 0RF Print Language: Scottish
[2024-03-07 16:06] LABS: Alanine Aminotransferase 50 U/L (0-40); Albumin Level 4.5 g/dL (3.5-5.0); Alkaline Phosphatase 80 U/L (39-117); Anion Gap 13 (12-20); Aspartate Amino Transferase 82 U/L (5-37); Bilirubin Total 0.7 mg/dL (0.0-1.0); Blood Urea Nitrogen 9 mg/dL (9-16); Calcium 9.6 mg/dL (8.4-10.2); Carbon Dioxide 25 mmol/L (22-29); Chloride 107 mmol/L (96-108); Creatinine Clr Calc Pharmacy 126.4; Estimated Glomerular Filt Rate > 60; Glucose Random 150 mg/dL (60-115); Potassium 3.6 mmol/L (3.3-5.1); Sodium 141 mmol/L (135-145); Total Protein 7.6 g/dL (6.5-8.0)
[2024-03-07 16:54] VITALS: BP 139/90; PULSE 103; RESP 18; TEMP 37.3; O2SAT 96
[2024-03-07 17:08] LABS: Amphetamine Screen Urine Not Detected (Not Detect); Barbiturates, Urine Not Detected (Not Detect); Benzodiazepines Screen Urine Not Detected (Not Detect); Buprenorphine Scr Not Detected (Not Detect); Cannabinoid Screen Urine Not Detected (Not Detect); Cocaine Screen Urine Not Detected (Not Detect); Fentanyl, urine Not Detected (Not Detect); Methadone Screen, Urine Not Detected (Not Detect); Opiate Screen Urine Not Detected (Not Detect); Oxycodone Screen Urine Not Detected (Not Detect); Phencyclidine Screen Urine Not Detected (Not Detect)
[2024-03-07 17:11] LABS: Ethanol 352 mg/dL; Magnesium 2.3 mg/dL (1.6-2.6)
[2024-03-07 17:30] LABS: Amphetamine Screen Urine Not Detected (Not Detect); Barbiturates, Urine Not Detected (Not Detect); Benzodiazepines Screen Urine Not Detected (Not Detect); Buprenorphine Scr Not Detected (Not Detect); Cannabinoid Screen Urine Not Detected (Not Detect); Cocaine Screen Urine Not Detected (Not Detect); Fentanyl, urine Not Detected (Not Detect); Methadone Screen, Urine Not Detected (Not Detect); Opiate Screen Urine Not Detected (Not Detect); Oxycodone Screen Urine Not Detected (Not Detect); Phencyclidine Screen Urine Not Detected (Not Detect)
[2024-03-07 17:32] LABS: Basophils Absolute Auto 0.1 X10*3/uL (0.0-0.2); Basophils Percent Auto 0.7 % (0-2); Eosinophils Absolute Auto 0.2 X10*3/uL (0.0-0.4); Eosinophils Percent Auto 1.7 % (0-4); Hematocrit 41.7 % (42.0-52.0); Imm Gran Abs Auto 0.03 X10*3/uL (0.00-0.03); Imm Gran Pct Auto 0.3 % (0.0-0.4); Lymphocytes Absolute Auto 2.3 X10*3/uL (1.2-4.9); Lymphocytes Percent Auto 21.5 % (20-40); MANUAL DIFF FLAG SCAN; Mean Corpuscular Volume 81.9 fL (80.0-98.0); Mean Platelet Volume 10.2 fL (9.4-12.4); Monocytes Percent Auto 8.9 % (2-11); Neutrophils Absolute Auto 7.2 x10*3/uL (2.0-8.3); Neutrophils Percent Auto 66.9 % (45-73); Platelet Count 283 X10*3/uL (160-400); Red Blood Count 5.09 X10*6/uL (4.60-5.80); Red Cell Distribution Width 12.9 % (11.0-16.0); SCAN SMEAR FLAG 1; White Blood Count 10.7 X10*3/uL (4.8-10.8)
[2024-03-07 17:33] LABS: Hemoglobin 13.9 g/dl (14.0-18.0); Mean Corpuscular HGB Conc 33.3 g/dl (31.0-36.0); Mean Corpuscular Hemoglobin 27.3 pg (27.0-33.0)
[2024-03-07 17:35] LABS: SLIDE REVIEW VERIFIED
--- NOTE | 2024-03-07 18:01 | MHC.EDTECH ---
Addendum entered by Roberto Dela Cruz 03/07/24 18:03: pt belongings was placed in locker 6 Original Note: late entry, pt was changed over @1615, pt changed into hospital gown and pants, blood drawn for labs and type and screen, urine given.
[2024-03-07 20:51] VITALS: BP 121/76; PULSE 102; RESP 17; TEMP 36.9; O2SAT 95
[2024-03-08 02:55] VITALS: BP 143/95; PULSE 89; RESP 17; TEMP 36.9; O2SAT 95
--- NOTE | 2024-03-08 07:30 | PC.NURSE ---
pt awake and alert, ambulating with brisk steady gait, no tremors noted. pt is speaking in clear and even tones. awaiting eval by care team for detox placement.
[2024-03-08 08:17] VITALS: BP 130/86; PULSE 76; RESP 16; TEMP 37.2; O2SAT 96
--- NOTE | 2024-03-08 08:19 | MHC.RECOVRN ---
Pts referral sent to [facility].
--- NOTE | 2024-03-08 08:44 | PC.NURSE ---
pt was evaluated by care team, status is voluntary bed search for detox.
--- NOTE | 2024-03-08 09:34 | MHC.RECOVRN ---
Briefly met with pt in 6, pt laying in bed, eyes closed, wakes to voice but difficult to engage in conversation. Pt reports drinking 4 24 ounce beers daily off and on for years. Pt interested in [facility]. Currently being reviewed by [facility].
--- NOTE | 2024-03-08 11:36 | PC.NURSE ---
ASSUMED CARE OF THIS PT, CURRENTLY SLEEPING IN HIS ROOM, RESP EVEN, NONLABOURED.
[2024-03-08] MEDS: Ibuprofen 600 MG TABLET PO (11:46)
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
[2024-03-08 12:11] VITALS: BP 130/86; PULSE 76; RESP 16; TEMP 37.2; O2SAT 96
== END 2024-03-08 12:12 | disposition home or self-care (01) ==
PROVIDERS: Emergency Provider Emergency Medicine
DX: F10.20 Alcohol dependence, uncomplicated (principal); Y90.8 Blood alcohol level of 240 mg/100 ml or more; R00.2 Palpitations; F32.A Depression, unspecified
CPT/HCPCS: 36415; 80053; 80307; 83735; 85025; 86850; 86900; 86901; 93005; 99285

== ENCOUNTER → 2024-03-07 15:29 | Outpatient (BNV) | payer OTHER, SELFPAY | PROVIDERS: Emergency Provider Emergency Medicine; Visit Provider Internal Medicine Cardiovascular Disease | DX: R00.0 Tachycardia, unspecified (principal); R00.2 Palpitations | CPT/HCPCS: 93010 ==

== ENCOUNTER 2024-03-11 04:58 | Emergency (ER) | payer OTHER, SELFPAY ==
[2024-03-11 05:08] VITALS: BP 154/92; PULSE 113; RESP 18; O2SAT 98; BMI 26.6
--- NOTE | 2024-03-11 05:28 | ED_ITS ---
HPI - Alcohol General Chief Complaint: ETOH/Substance Use Stated Complaint: detox Time Seen by Provider: 03/11/24 05:34 Source: patient Mode of arrival: ambulatory Limitations: no limitations History of Present Illness ED Provider: Dr. Mariel Ag HPI narrative: Patient comes to the emergency room requesting detox. When patient arrived, I was informed by the patient's nurse the patient threw himself on the floor. Patient states that he threw himself on the floor wanting to get attention. When patient came in, patient states that he change his mind and no longer wants detox. Patient denies SI or HI Related Data Previous Rx's ?Medication ?Instructions ?Recorded ibuprofen 800 mg tablet 800 mg PO Q8H PRN pain #14 tabs 07/16/20 oxycodone-acetaminophen 5 mg-325 1 tab PO Q6H PRN pain #14 tabs 20 mg tablet (Percocet) Allergies Allergy/AdvReac Type Severity Reaction Status Date / Time No Known Allergies Allergy Verified 03/11/24 05:11 Review of Systems Review of Systems: Constitutional : No Weight loss, No Fever, No Chills, No Night Sweats, No Fatigue, No Malaise ENT/Mouth : No Hearing loss, No Ear Pain, No Nasal Congestion, No Sinus Pain, No Hoarseness, No sore throat, No Rhinorrhea, No Swallowing Difficulty Eyes: No Eye Pain, No Swelling, No Redness, No Foreign Body, No Discharge, No Vision Changes Cardiovascular : No Chest Pain, No SOB, No Dyspnea on Exertion, No Orthopnea, No Edema, No Palpitations Respiratory : No Cough, No Sputum, No Wheezing, No Smoke Exposure, No Dyspnea Gastrointestinal : No Nausea, No Vomiting, No Diarrhea, No Constipation, No abdominal Pain, No Hematochezia, No Melena Genitourinary : no irregular bleeding, No Dysuria, No Urinary Frequency, No Hematuria, No Urinary Incontinence, No Urgency, No Flank Pain, No Urinary Flow Changes, No Hesitancy Musculoskeletal : No joint pain, No Myalgias, No Joint Swelling Skin : No Skin Lesions, No rash Neuro : No Weakness, No Numbness, No Paresthesias, No Loss of Consciousness, No Dizziness, No Headache Psych : No Anxiety/Panic, No Depression, No SI/HI/AH/VH, admits to alcohol abuse Heme/Lymph: No Bruising, No Bleeding,No Lymphadenopathy Endocrine : No Polyuria, No Polydipsia, No Temperature Intolerance [facility] Past Medical History Medical History Alcohol dependence Social History Social History Unable to assess alcohol history related to: Unknown Alcohol intake: current Alcohol intake frequency: 3 or more drinks per day Alcohol type: beer Patient Tobacco Use Status: Current everyday Tobacco user Smoked in Last 30 Days: Yes Substance Use Type: Marijuana Advance Directives: No Advance Directives Information Provided: No Do you have a plan to hurt others: No Plan Physical Exam ED Vital Signs: Vital Signs - 24 hr 03/11/24 05:08 Pulse Rate 113 H Respiratory Rate 18 Blood Pressure 154/92 H Pulse Oximetry 98 Oxygen Delivery Method Room Air BMI result Body Mass Index 26.6 Const Other: Appearance: Alert. Oriented X3. No acute distress. Patient acting a bit erratic. , however, patient is alert and oriented x3, coherent, patient has normal steady unassisted gait Eyes: Pupils equal, round and reactive to light. ENT: Pharynx normal. Neck: Normal inspection. Neck supple. No lymph nodes noted. No crepitus CVS: Normal heart rate and rhythm. Pulses normal. Normal S1 and S2 Respiratory: No respiratory distress. Breath sounds normal. No Wheezing. No rales Abdomen: Soft and nontender. No rigidity. No distention. Skin: Skin warm and dry. Normal skin color. Normal skin turgor. Extremities: No lower extremity edema. No Lacerations. No Rash Neuro: Oriented X 3. No motor deficit. No sensory deficit. Moving all extremities. No slurred speech. CN 2 through 12 grossly intact Psych: calm, cooperative, normal affect Course Course Course Narrative: Patient change his mind, he no longer wants detox. -patient is alert and oriented x3, no SI, no HI, steady gait. -per patient's request, patient was discharged Discharge Plan Discharge Clinical Impression: Alcohol dependence Patient Disposition: Home, Self-Care Instructions: Alcohol Dependence (ED) Additional Instructions: Please follow-up with your primary care physician tomorrow. If you have any worsening or new symptoms, please return to the emergency room or call 911 Prescriptions: No Action ibuprofen 800 mg tablet 800 mg PO Q8H PRN (Reason: pain) Qty: 14 0RF oxycodone-acetaminophen [Percocet] 5-325 mg tablet 1 tab PO Q6H PRN (Reason: pain) Qty: 14 0RF Interventions: ED Discharge Assessment Last Done: 03/11/24 05:51 Discharge Date/Time: 03/11/24 05:53 Print Language: Sammarinese
[2024-03-11 05:51] VITALS: BP 154/92; PULSE 113; RESP 18; TEMP -17.7; TEMP 0; O2SAT 98
== END 2024-03-11 05:53 | disposition home or self-care (01) ==
PROVIDERS: Emergency Provider Emergency Medicine
DX: F10.20 Alcohol dependence, uncomplicated (principal); Y90.9 Presence of alcohol in blood, level not specified; Z79.899 Other long term (current) drug therapy; F17.200 Nicotine dependence, unspecified, uncomplicated
CPT/HCPCS: 99281; 99284

== ENCOUNTER 2024-06-25 19:41 | Emergency (ER) | payer OTHER, SELFPAY ==
[2024-06-25 20:11] VITALS: PULSE 140; O2SAT 97
[2024-06-25 20:27] VITALS: BP 138/98; PULSE 123; RESP 20; TEMP 36.7; O2SAT 95; BMI 22.4
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
[2024-06-25 20:49] VITALS: BP 138/98; PULSE 123; RESP 20; TEMP 36.7; O2SAT 95
== END 2024-06-25 21:06 | disposition home or self-care (01) ==
LOC: HO.ED 20:53
PROVIDERS: Emergency Provider Emergency Medicine
DX: H10.33 Unspecified acute conjunctivitis, bilateral (principal); H57.12 Ocular pain, left eye; F17.210 Nicotine dependence, cigarettes, uncomplicated
CPT/HCPCS: 99282

== ENCOUNTER 2024-10-09 22:00 | Emergency (ER) | payer OTHER, SELFPAY ==
[2024-10-09 22:14] VITALS: BP 148/97; PULSE 100; RESP 17; TEMP 37.1; O2SAT 100; BMI 22.8
[2024-10-09 22:44] LABS: Alanine Aminotransferase 120 U/L (0-40); Albumin Level 4.3 g/dL (3.5-5.0); Alkaline Phosphatase 86 U/L (39-117); Anion Gap 15 (12-20); Aspartate Amino Transferase 131 U/L (5-37); Bilirubin Total 0.7 mg/dL (0.0-1.0); Blood Urea Nitrogen 6 mg/dL (9-16); Carbon Dioxide 26 mmol/L (22-29); Chloride 105 mmol/L (96-108); Creatinine Clr Calc Pharmacy 144.1; Estimated Glomerular Filt Rate > 60; Ethanol 369 mg/dL; Glucose Random 138 mg/dL (60-115); Potassium 3.3 mmol/L (3.3-5.1); Sodium 143 mmol/L (135-145); Total Protein 7.8 g/dL (6.5-8.0)
[2024-10-09 23:08] LABS: Basophils Absolute Auto 0.1 X10*3/uL (0.0-0.2); Basophils Percent Auto 0.7 % (0-2); Eosinophils Absolute Auto 0.1 X10*3/uL (0.0-0.4); Eosinophils Percent Auto 1.1 % (0-4); Hematocrit 43.5 % (42.0-52.0); Imm Gran Abs Auto 0.03 X10*3/uL (0.00-0.03); Imm Gran Pct Auto 0.2 % (0.0-0.4); Lymphocytes Absolute Auto 2.1 X10*3/uL (1.2-4.9); MANUAL DIFF FLAG SCAN; Mean Platelet Volume 10.5 fL (9.4-12.4); Monocytes Absolute Auto 1.8 X10*3/uL (0.1-1.2); Monocytes Percent Auto 14.9 % (2-11); Neutrophils Absolute Auto 8.1 x10*3/uL (2.0-8.3); Neutrophils Percent Auto 66.1 % (45-73); Platelet Count 201 X10*3/uL (160-400); Red Blood Count 5.37 X10*6/uL (4.60-5.80); Red Cell Distribution Width 12.9 % (11.0-16.0); SCAN SMEAR FLAG 1; White Blood Count 12.3 X10*3/uL (4.8-10.8)
[2024-10-09 23:14] LABS: Influenza A PCR NEGATIVE (Negative); Influenza B PCR NEGATIVE (Negative); Resp Syncy Virus RNA Qual PCR NEGATIVE (Negative); SARS COV2 PCR INHOUSE NEGATIVE (Negative)
[2024-10-09 23:41] LABS: Hemoglobin 14.6 g/dl (14.0-18.0); Mean Corpuscular HGB Conc 33.6 g/dl (31.0-36.0); Mean Corpuscular Hemoglobin 27.2 pg (27.0-33.0)
[2024-10-09 23:47] LABS: SLIDE REVIEW VERIFIED
[2024-10-10 03:54] VITALS: BP 117/76; PULSE 104; RESP 17; TEMP 37.1; O2SAT 95
--- NOTE | 2024-10-10 06:23 | ED.GENADULT ---
HPI - General Adult General Chief complaint: Dizziness Stated complaint: Nausea Time Seen by Provider: 10/10/24 06:00 Source: patient Mode of arrival: ambulatory Limitations: no limitations History of Present Illness ED Provider: HPI narrative: Patient is homeless complaining of chronic dizziness for more than 1 year drinks alcohol daily had few drinks prior to arrival no chest pain no fever no chills Related Data Home Medications ?Medication ?Instructions ?Recorded ?Confirmed No Known Home Meds 10/11/24 10/11/24 Allergies Allergy/AdvReac Type Severity Reaction Status Date / Time Milk Containing Products AdvReac Gastrointestinal Verified 10/11/24 01:05 (Dairy) Upset Review of Systems Review of Systems: Yes all other systems are reviewed and are negative [facility] Past Medical History Medical History Alcohol dependence Social History Social History Unable to assess alcohol history related to: Unknown Alcohol intake: current Alcohol intake frequency: 3 or more drinks per day Alcohol type: beer Patient Tobacco Use Status: Current everyday Tobacco user Substance Use Type: Marijuana Advance Directives: No Advance Directives Information Provided: Yes Do you have a plan to hurt others: No Plan Physical Exam ED Vital Signs: Vital Signs - 24 hr 10/09/24 22:14 10/10/24 03:54 Temperature 98.8 F 98.8 F Pulse Rate 100 104 H Respiratory Rate 17 17 Blood Pressure 148/97 H 117/76 Pulse Oximetry 100 95 Oxygen Delivery Method Room Air Room Air BMI result Body Mass Index 22.8 Appearance: Alert. Oriented X3. No acute distress. Eyes: PERRLA, No Nystagmus ENT: Pharynx normal. Oral Mucosa moist Neck: Normal inspection. Neck supple. CVS: Normal heart rate and rhythm. Pulses normal. Respiratory: No respiratory distress. Equal air entry bilateral, no wheezing/rales/rhonchi Abdomen: Soft and nontender. Bowel sounds are present, no mass palpable, no CVA tenderness Skin: Skin warm and dry. Normal skin color. Normal skin turgor. Extremities: No lower extremity edema. No calf tenderness Neuro: Oriented X 3. No motor deficit. No sensory deficit.No cerebellar signs , cranial nerves II-XII intact Medications Administered Discontinued Medications Generic Name Dose Route Start Last Admin Trade Name Jazmine PRN Reason Stop Dose Admin Prednisone 60 mg 10/10/24 06:24 10/10/24 06:54 Prednisone 20 Mg Tablet PO 10/10/24 06:25 60 mg ONCE ONE Administration Medical Decision Making Medical Decision Making [facility] Narrative: Patient's anxiety alcohol use multiple complaints feeling much better after sleeping will discharge patient home patient does not want to go to detox Lab Data 10/09/24 22:24 10/09/24 22:24 Labs: Lab Results 10/09/24 Range/Units 22:24 WBC 12.3 H (4.8-10.8) X10*3/uL RBC 5.37 (4.60-5.80) X10*6/uL Hgb 14.6 (14.0-18.0) g/dl Hct 43.5 (42.0-52.0) % MCV 81.0 (80.0-98.0) fL MCH 27.2 (27.0-33.0) pg MCHC 33.6 (31.0-36.0) g/dl RDW 12.9 (11.0-16.0) % Plt Count 201 D (160-400) X10*3/uL MPV 10.5 (9.4-12.4) fL Immature Gran % (Auto) 0.2 (0.0-0.4) % Neut % (Auto) 66.1 (45-73) % Lymph % (Auto) 17.0 L (20-40) % [place] % (Auto) 14.9 H (2-11) % Eos % (Auto) 1.1 (0-4) % Baso % (Auto) 0.7 (0-2) % Lymph # (Auto) 2.1 (1.2-4.9) X10*3/uL [place] # (Auto) 1.8 H (0.1-1.2) X10*3/uL Eos # (Auto) 0.1 (0.0-0.4) X10*3/uL Baso # (Auto) 0.1 (0.0-0.2) X10*3/uL Abs Immat Gran (auto) 0.03 (0.00-0.03) X10*3/uL Absolute Neuts (auto) 8.1 (2.0-8.3) x10*3/uL Absolute Nucleated RBC 0.000 (0.0-0.012) X10*3/uL Nucleated RBC % (auto) 0.0 (0.0-0.2) /100WBC Smear Tech's Comments VERIFIED Sodium 143 (135-145) mmol/L Potassium 3.3 (3.3-5.1) mmol/L Chloride 105 (96-108) mmol/L Carbon Dioxide 26 (22-29) mmol/L Anion Gap 15 (12-20) BUN 6 L (9-16) mg/dL Creatinine 0.77 (0.5-1.4) mg/dL Estim Creat Clear Calc 144.1 Estimated GFR > 60 Random Glucose 138 H (60-115) mg/dL Calcium 9.0 D (8.4-10.2) mg/dL Total Bilirubin 0.7 (0.0-1.0) mg/dL AST 131 H (5-37) U/L ALT 120 H (0-40) U/L Alkaline Phosphatase 86 (39-117) U/L Total Protein 7.8 (6.5-8.0) g/dL Albumin 4.3 (3.5-5.0) g/dL Ethyl Alcohol 369 H* mg/dL Influenza Type A (PCR) NEGATIVE (Negative) Influenza Type B (PCR) NEGATIVE (Negative) RSV RNA Qual (PCR) NEGATIVE (Negative) SARS-CoV-2 RNA (RT-PCR) NEGATIVE (Negative) Discharge Plan Discharge Clinical Impression: Anxiety, Psoriasis Alcohol dependence Qualifiers: Substance use status: uncomplicated Qualified Code(s): F10.20 - Alcohol dependence, uncomplicated Patient Disposition: Home, Self-Care Instructions: Psoriasis (ED), Abuse of Alcohol (ED), Anxiety (ED) Additional Instructions: Stop drinking alcohol Medication for anxiety as prescribed Prednisone for psoriasis lesions Follow with your PCP Prescriptions: No Action No Known Home Meds Interventions: ED Discharge Assessment Last Done: 10/10/24 07:04 Discharge Date/Time: 10/10/24 07:04 Print Language: Hungarian
[2024-10-10 06:30] VITALS: BP 131/91; PULSE 91; RESP 17; TEMP 36.7; O2SAT 94
[2024-10-10] MEDS: predniSONE 20 MG TABLET 60 MG PO (06:54)
[2024-10-10 07:04] VITALS: BP 131/91; PULSE 91; RESP 17; TEMP 36.7; O2SAT 94
== END 2024-10-10 07:04 | disposition home or self-care (01) ==
PROVIDERS: Emergency Provider Internal Medicine
DX: L40.9 Psoriasis, unspecified (principal); R42 Dizziness and giddiness; R11.0 Nausea; F10.20 Alcohol dependence, uncomplicated; Z03.818 Encounter for observation for suspected exposure to other biological agents ruled out
CPT/HCPCS: 0241U; 80053; 80307; 85025; 99283

== ENCOUNTER 2024-10-11 00:55 | Emergency (ER) | payer OTHER, SELFPAY ==
[2024-10-11 01:02] VITALS: BP 139/104; PULSE 108; RESP 18; TEMP 36.4; O2SAT 96; BMI 21.8
[2024-10-11 02:32] LABS: Appearance Urine Clear; Color Urine Yellow; Glucose Urine UA Negative (Negative); Leukocyte Esterase Urine Negative (Negative); Nitrite Urine Negative (Negative); Specific Gravity - Urine <= 1.005 (1.005-1.025); Urine Blood Negative (Negative); Urine Ketones Negative (Negative); Urine Protein Negative (Neg-Trace)
[2024-10-11 02:41] LABS: Amphetamine Screen Urine Not Detected (Not Detect); Barbiturates, Urine Not Detected (Not Detect); Benzodiazepines Screen Urine Not Detected (Not Detect); Buprenorphine Scr Not Detected (Not Detect); Cannabinoid Screen Urine Not Detected (Not Detect); Cocaine Screen Urine Not Detected (Not Detect); Fentanyl, urine Not Detected (Not Detect); Methadone Screen, Urine Not Detected (Not Detect); Opiate Screen Urine Not Detected (Not Detect); Oxycodone Screen Urine Not Detected (Not Detect); Phencyclidine Screen Urine Not Detected (Not Detect)
[2024-10-11 02:53] LABS: Alanine Aminotransferase 102 U/L (0-40); Albumin Level 4.1 g/dL (3.5-5.0); Anion Gap 20 (12-20); Aspartate Amino Transferase 124 U/L (5-37); Bilirubin Total 0.8 mg/dL (0.0-1.0); Blood Urea Nitrogen 5 mg/dL (9-16); Calcium 9.3 mg/dL (8.4-10.2); Carbon Dioxide 19 mmol/L (22-29); Chloride 104 mmol/L (96-108); Creatinine Clr Calc Pharmacy 158.1; Estimated Glomerular Filt Rate > 60; Ethanol 271 mg/dL; Glucose Random 97 mg/dL (60-115); Potassium 3.7 mmol/L (3.3-5.1); Sodium 139 mmol/L (135-145)
[2024-10-11 02:58] LABS: Basophils Absolute Auto 0.1 X10*3/uL (0.0-0.2); Basophils Percent Auto 0.4 % (0-2); Eosinophils Absolute Auto 0.1 X10*3/uL (0.0-0.4); Eosinophils Percent Auto 0.4 % (0-4); Hematocrit 43.1 % (42.0-52.0); Hemoglobin 16.5 g/dl (14.0-18.0); Imm Gran Abs Auto 0.06 X10*3/uL (0.00-0.03); Imm Gran Pct Auto 0.4 % (0.0-0.4); Lymphocytes Absolute Auto 1.4 X10*3/uL (1.2-4.9); Lymphocytes Percent Auto 10.1 % (20-40); MANUAL DIFF FLAG SCAN; Mean Corpuscular HGB Conc 38.3 g/dl (31.0-36.0); Mean Corpuscular Hemoglobin 31.1 pg (27.0-33.0); Mean Corpuscular Volume 81.2 fL (80.0-98.0); Mean Platelet Volume 10.3 fL (9.4-12.4); Monocytes Absolute Auto 2.2 X10*3/uL (0.1-1.2); Monocytes Percent Auto 16.3 % (2-11); Neutrophils Absolute Auto 9.9 x10*3/uL (2.0-8.3); Neutrophils Percent Auto 72.4 % (45-73); PLT CLUMP 1; Red Blood Count 5.31 X10*6/uL (4.60-5.80); Red Cell Distribution Width 12.7 % (11.0-16.0); SCAN SMEAR FLAG 1
[2024-10-11 03:12] LABS: Alkaline Phosphatase 79 U/L (39-117)
[2024-10-11 03:13] LABS: Platelet Count 142 X10*3/uL (160-400); White Blood Count 13.7 X10*3/uL (4.8-10.8)
[2024-10-11 03:16] LABS: SLIDE REVIEW VERIFIED
--- NOTE | 2024-10-11 03:57 | ED.ALCOHOL ---
HPI - Alcohol General Chief Complaint: ETOH/Substance Use Stated Complaint: detox Time Seen by Provider: 10/11/24 01:46 Source: patient Limitations: no limitations History of Present Illness ED Provider: Hortensia Plascencia PA-C HPI narrative: 34-year-old male with a history of alcohol use disorder presents requesting detox. Patient has been drinking prior to arrival. Patient has no history of withdrawal, no seizure activity. Related Data Home Medications ?Medication ?Instructions ?Recorded ?Confirmed No Known Home Meds 10/11/24 10/11/24 Allergies Allergy/AdvReac Type Severity Reaction Status Date / Time Milk Containing Products AdvReac Gastrointestinal Verified 10/11/24 01:05 (Dairy) Upset Review of Systems Review of Systems: Yes all other systems are reviewed and are negative Constitutional: Constitutional: Denies fatigue and Denies fever(s) Cardiovascular: Cardiovascular: Denies chest pain and Denies dyspnea Respiratory: Respiratory: Denies cough and Denies dyspnea Gastrointestinal: Gastrointestinal: Denies abdominal pain, Denies diarrhea, Denies nausea and Denies vomiting Endocrine: Endocrine: Denies fatigue PMFSH Past Medical History Attestation statement: The following information was validated with the patient. Medical History Alcohol dependence Social History Social History Unable to assess alcohol history related to: Unknown Alcohol intake: current Alcohol intake frequency: 3 or more drinks per day Alcohol type: beer Patient Tobacco Use Status: Current everyday Tobacco user Substance Use Type: Marijuana Advance Directives: No Advance Directives Information Provided: Yes Do you have a plan to hurt others: No Plan Physical Exam ED Vital Signs: Vital Signs - 24 hr 10/11/24 01:02 10/11/24 05:50 Temperature 97.6 F 98.8 F Pulse Rate 108 H 86 Respiratory Rate 18 16 Blood Pressure 139/104 H 147/70 H Pulse Oximetry 96 96 Oxygen Delivery Method Room Air Room Air BMI result Body Mass Index 21.8 Const Other: Alert Orientation/consciousness: patient oriented x3 Resp Effort & Inspection: normal respiratory effort Cardio Other: Normal peripheral perfusion Skin Other: Warm dry no rash Neuro General: patient oriented x3, no focal motor deficits and CN's II-XI intact bilaterally Psych Other: Cooperative Course Course Course Narrative: observation continued no acute events overnight, pending RECOVERY team. PO ativan ordered on CIWA. SUZIE 10/11/24 708am Medical Decision Making Medical Decision Making [facility] Narrative: 34-year-old male with a history of alcohol use disorder presents requesting detox. Patient has been drinking prior to arrival. Patient has no history of withdrawal, no seizure activity. Problem alcohol use disorder History: Per patient I have considered the following differential diagnoses: Alcohol withdrawal, alcohol intoxication, decompensated psychiatric illness, SI, HI Plan: Screening labs including drug screen and serum ethanol were obtained, we will place a consult for the recovery team. I will Place a CIWA and phenobarb protocol to be used as needed I have independently reviewed the following tests: Labs: Slight leukocytosis, not anemic, no electrolyte abnormality, urine not infected, serum ethanol 271, some elevation of LFTs, drug screen negative, viral panel negative Lab Data 10/11/24 02:17 10/11/24 02:17 Labs: Lab Results 10/11/24 10/11/24 10/11/24 Range/Units 02:14 02:15 02:17 WBC 13.7 H (4.8-10.8) X10*3/uL RBC 5.31 (4.60-5.80) X10*6/uL Hgb 16.5 (14.0-18.0) g/dl Hct 43.1 (42.0-52.0) % MCV 81.2 (80.0-98.0) fL MCH 31.1 (27.0-33.0) pg MCHC 38.3 H (31.0-36.0) g/dl RDW 12.7 (11.0-16.0) % Plt Count 142 L D (160-400) X10*3/uL MPV 10.3 (9.4-12.4) fL Immature Gran % (Auto) 0.4 (0.0-0.4) % Neut % (Auto) 72.4 (45-73) % Lymph % (Auto) 10.1 L (20-40) % [place] % (Auto) 16.3 H (2-11) % Eos % (Auto) 0.4 (0-4) % Baso % (Auto) 0.4 (0-2) % Lymph # (Auto) 1.4 (1.2-4.9) X10*3/uL [place] # (Auto) 2.2 H (0.1-1.2) X10*3/uL Eos # (Auto) 0.1 (0.0-0.4) X10*3/uL Baso # (Auto) 0.1 (0.0-0.2) X10*3/uL Abs Immat Gran (auto) 0.06 H (0.00-0.03) X10*3/uL Absolute Neuts (auto) 9.9 H (2.0-8.3) x10*3/uL Absolute Nucleated RBC 0.000 (0.0-0.012) X10*3/uL Nucleated RBC % (auto) 0.0 (0.0-0.2) /100WBC Smear Tech's Comments VERIFIED Sodium 139 (135-145) mmol/L Potassium 3.7 (3.3-5.1) mmol/L Chloride 104 (96-108) mmol/L Carbon Dioxide 19 L (22-29) mmol/L Anion Gap 20 (12-20) BUN 5 L (9-16) mg/dL Creatinine 0.69 (0.5-1.4) mg/dL Estim Creat Clear Calc 158.1 Estimated GFR > 60 Random Glucose 97 (60-115) mg/dL Calcium 9.3 (8.4-10.2) mg/dL Total Bilirubin 0.8 (0.0-1.0) mg/dL AST 124 H (5-37) U/L ALT 102 H (0-40) U/L Alkaline Phosphatase 79 (39-117) U/L Total Protein 8.0 (6.5-8.0) g/dL Albumin 4.1 (3.5-5.0) g/dL Urine Color Yellow Urine Appearance Clear Urine pH 6.0 (5.0-9.0) Ur Specific [place] <= 1.005 (1.005-1.025) Urine Protein Negative (Neg-Trace) mg/dL Urine Glucose (UA) Negative (Negative) mg/dL Urine Ketones Negative (Negative) mg/dL Urine Blood Negative (Negative) Urine Nitrite Negative (Negative) Ur Leukocyte Esterase Negative (Negative) Urine Opiates Screen Not Detected (Not Detect) Ur Buprenorphine Scrn Not Detected (Not Detect) ng/mL Ur Oxycodone Screen Not Detected (Not Detect) ng/mL Urine Methadone Screen Not Detected (Not Detect) ng/mL Urine Fentanyl Screen Not Detected (Not Detect) Ur Barbiturates Screen Not Detected (Not Detect) Ur Phencyclidine Scrn Not Detected (Not Detect) Ur Amphetamines Screen Not Detected (Not Detect) U Benzodiazepines Scrn Not Detected (Not Detect) Urine Cocaine Screen Not Detected (Not Detect) U Marijuana (THC) Screen Not Detected (Not Detect) Ethyl Alcohol 271 mg/dL Discharge Plan Discharge Clinical Impression: Alcohol dependence Patient Disposition: Still a Patient Prescriptions: No Action No Known Home Meds Print Language: Croatian
[2024-10-11 05:50] VITALS: BP 147/70; PULSE 86; RESP 16; TEMP 37.1; O2SAT 96
[2024-10-11] MEDS: LORazepam 1 MG TABLET 2 MG PO ×2 (09:02→12:48)
--- NOTE | 2024-10-11 10:28 | MHC.RECOVRN ---
Pt currently being reviewed by Shaka PATE.
[2024-10-11 13:38] VITALS: BP 143/101; PULSE 101; RESP 16; TEMP 37.1; O2SAT 96
== END 2024-10-11 13:54 | disposition other institution (70) ==
PROVIDERS: Emergency Provider Emergency Medicine
DX: F10.229 Alcohol dependence with intoxication, unspecified (principal); Y90.8 Blood alcohol level of 240 mg/100 ml or more; F17.210 Nicotine dependence, cigarettes, uncomplicated; Z51.81 Encounter for therapeutic drug level monitoring; Z79.899 Other long term (current) drug therapy; Z71.41 Alcohol abuse counseling and surveillance of alcoholic
CPT/HCPCS: 36415; 80053; 80307; 81003; 85025; 99284; S9485

== ENCOUNTER 2024-10-23 01:28 | Emergency (ER) | payer OTHER, SELFPAY ==
[2024-10-23 02:14] VITALS: BP 173/103; PULSE 107; RESP 18; TEMP 36.8; O2SAT 97; BMI 23.7
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
--- NOTE | 2024-10-23 03:07 | PC.NURSE ---
my left without completing tx, did not wish to be seen, JOSE Cedillo aware. pt ambulated out of tx room with a steady gait , no apparent distress noted
--- NOTE | 2024-10-23 03:08 | PC.NURSE ---
pt did not wish to stay for any treatments, has no medical complaints, no apparent distress. denies si or hi or psychiatric problems. seen by JOSE morataya, ambulated out of tx room with steady gait
[2024-10-23 03:09] VITALS: BP 173/103; PULSE 107; RESP 18; TEMP 36.8; O2SAT 97
== END 2024-10-23 03:11 | disposition home or self-care (01) ==
PROVIDERS: Emergency Provider Emergency Medicine Emergency Medical Services
DX: F10.120 Alcohol abuse with intoxication, uncomplicated (principal); Y90.9 Presence of alcohol in blood, level not specified
CPT/HCPCS: 99282

== ENCOUNTER 2024-10-23 03:34 | Emergency (ER) | payer OTHER, SELFPAY ==
--- NOTE | 2024-10-23 | ECG_ITS ---
Test Reason : TACHYCARDIA Blood Pressure : */* mmHG Vent. Rate : 111 BPM Atrial Rate : 111 BPM P-R Int : 152 ms QRS Dur : 98 ms QT Int : 340 ms P-R-T Axes : 82 63 58 degrees QTcB Int : 462 ms Sinus tachycardia Otherwise normal ECG When compared with ECG of 07-Mar-2024 15:46, T wave inversion no longer evident in Inferior leads Referred By: Generic ED Physician Electronically Signed By: Prakash Padilla
[2024-10-23 03:35] VITALS: BP 132/88; PULSE 129; RESP 18; TEMP 36.9; O2SAT 95; BMI 23.1
[2024-10-23 04:32] LABS: Alanine Aminotransferase 74 U/L (0-40); Albumin Level 4.3 g/dL (3.5-5.0); Anion Gap 16 (12-20); Aspartate Amino Transferase 58 U/L (5-37); Blood Urea Nitrogen 10 mg/dL (9-16); Calcium 9.2 mg/dL (8.4-10.2); Carbon Dioxide 23 mmol/L (22-29); Chloride 108 mmol/L (96-108); Creatinine Clr Calc Pharmacy 138.8; Estimated Glomerular Filt Rate > 60; Ethanol 382 mg/dL; Glucose Random 101 mg/dL (60-115); Potassium 3.9 mmol/L (3.3-5.1); Sodium 143 mmol/L (135-145); Total Protein 7.9 g/dL (6.5-8.0)
[2024-10-23 04:33] LABS: Acetaminophen LAB < 3 mcg/mL (<30); Basophils Absolute Auto 0.1 X10*3/uL (0.0-0.2); Basophils Percent Auto 0.5 % (0-2); Eosinophils Percent Auto 0.4 % (0-4); Hematocrit 43.4 % (42.0-52.0); Imm Gran Abs Auto 0.04 X10*3/uL (0.00-0.03); Imm Gran Pct Auto 0.4 % (0.0-0.4); Lymphocytes Absolute Auto 2.9 X10*3/uL (1.2-4.9); Lymphocytes Percent Auto 26.5 % (20-40); MANUAL DIFF FLAG SCAN; Mean Corpuscular Volume 80.5 fL (80.0-98.0); Mean Platelet Volume 10.1 fL (9.4-12.4); Monocytes Absolute Auto 1.4 X10*3/uL (0.1-1.2); Monocytes Percent Auto 12.7 % (2-11); Neutrophils Absolute Auto 6.6 x10*3/uL (2.0-8.3); Neutrophils Percent Auto 59.5 % (45-73); Platelet Count 380 X10*3/uL (160-400); Red Blood Count 5.39 X10*6/uL (4.60-5.80); Red Cell Distribution Width 12.4 % (11.0-16.0); SCAN SMEAR FLAG 1; Salicylate < 5.0 mg/dL (15-30)
[2024-10-23 04:35] LABS: Alkaline Phosphatase 77 U/L (39-117)
[2024-10-23 04:50] LABS: Mean Corpuscular Hemoglobin 31.5 pg (27.0-33.0)
[2024-10-23 04:51] LABS: Mean Corpuscular HGB Conc 39.2 g/dl (31.0-36.0)
[2024-10-23 04:56] LABS: SLIDE REVIEW VERIFIED
--- NOTE | 2024-10-23 07:51 | ED_ITS ---
HPI - General Adult General Chief complaint: General Medical Stated complaint: unknown/ could not explain Time Seen by Provider: 10/23/24 07:40 Source: patient History of Present Illness HPI narrative: this is 34 years old with a history of alcohol abuse presented to the emergency department intoxicated with alcohol. Denies any chest pain shortness of breath fever Onset (ago): hour(s) (3) Radiation: non-radiation Severity: moderate Pain Consistency: constant Relieving factors: none Exacerbating factors: none Associated symptoms: denies other symptoms Related Data Home Medications ?Medication ?Instructions ?Recorded ?Confirmed No Known Home Meds 10/11/24 10/11/24 Allergies Allergy/AdvReac Type Severity Reaction Status Date / Time Milk Containing Products AdvReac Gastrointestinal Verified 10/23/24 03:43 (Dairy) Upset Review of Systems 2 Review of Systems: Yes Unobtainable due to mental status PMFSH Past Medical History [facility], [facility] Narrative: no acute distress comfortable in the stretcher Medical History Alcohol dependence Social History Social History Unable to assess alcohol history related to: Unknown Alcohol intake: current Alcohol intake frequency: 3 or more drinks per day Alcohol type: beer Patient Tobacco Use Status: Current everyday Tobacco user Substance Use Type: Marijuana Advance Directives: No Do you have a plan to hurt others: No Plan Physical Exam ED Vital Signs: Vital Signs - 24 hr 10/23/24 03:35 Temperature 98.5 F Pulse Rate 129 H Respiratory Rate 18 Blood Pressure 132/88 Pulse Oximetry 95 Oxygen Delivery Method Room Air BMI result Body Mass Index 23.1 vital signs stable Const General: cooperative Nutritional Appearance: well nourished [facility] Head: Yes normal to inspection Ears: hearing grossly normal bilaterally General nose exam: Normal external nose present Face and sinus: Yes normal facial exam Mouth: Normal oral and palatal mucosa present Neck Neck: Yes normal visual inspection and Yes full ROM Chest Chest palpation & inspection: normal inspection of the chest Resp Effort & Inspection: normal respiratory effort Auscultation: clear to auscultation bilaterally Cardio Jugular venous distension: no JVD Rate: regular rate Rhythm: regular rhythm GI Inspection: Yes normal to inspection Palpation (GI): Soft to palpation, not firm, nontender and no guarding Auscultation: normal bowel sounds Skin General skin exam: no rashes or lesions noted and elasticity normal Lesions: no lesions Neuro Other: no focal intoxicated but easily arousable Extrem General: Yes normal to inspection and Yes full ROM Course Reevaluation(s) Reevaluation #1: PATIENT WAS SEEN BY THE CHEMICAL RECLAMATION EQUIPMENT OPERATOR HE REFUSED ANY KIND OF HELP AT THIS TIME WE WILL DISCHARGE THE PATIENT FROM THE EMERGENCY DEPARTMENT, HE IS AWAKE ALERT GAIT IS STABLE NO ATAXIA Time: 10:14 Medical Decision Making Medical Decision Making MDM Narrative: patient presented with alcohol intoxication we will check baseline b Differential Diagnosis Differential Diagnoses: The differential diagnosis associated with the presentation includes alcohol intoxication/dehydration Admission/Observation Consideration of admission/observation: Escalation of care including admission/observation considered Lab Data 10/23/24 03:57 10/23/24 03:57 Labs: Lab Results 10/23/24 Range/Units 03:57 WBC 11.0 H (4.8-10.8) X10*3/uL RBC 5.39 (4.60-5.80) X10*6/uL Hgb 17.0 (14.0-18.0) g/dl Hct 43.4 (42.0-52.0) % MCV 80.5 (80.0-98.0) fL MCH 31.5 (27.0-33.0) pg MCHC 39.2 H (31.0-36.0) g/dl RDW 12.4 (11.0-16.0) % Plt Count 380 D (160-400) X10*3/uL MPV 10.1 (9.4-12.4) fL Immature Gran % (Auto) 0.4 (0.0-0.4) % Neut % (Auto) 59.5 (45-73) % Lymph % (Auto) 26.5 (20-40) % Cavalier % (Auto) 12.7 H (2-11) % Eos % (Auto) 0.4 (0-4) % Baso % (Auto) 0.5 (0-2) % Lymph # (Auto) 2.9 (1.2-4.9) X10*3/uL Cavalier # (Auto) 1.4 H (0.1-1.2) X10*3/uL Eos # (Auto) 0.0 (0.0-0.4) X10*3/uL Baso # (Auto) 0.1 (0.0-0.2) X10*3/uL Abs Immat Gran (auto) 0.04 H (0.00-0.03) X10*3/uL Absolute Neuts (auto) 6.6 (2.0-8.3) x10*3/uL Absolute Nucleated RBC 0.000 (0.0-0.012) X10*3/uL Nucleated RBC % (auto) 0.0 (0.0-0.2) /100WBC Smear Tech's Comments VERIFIED Sodium 143 (135-145) mmol/L Potassium 3.9 (3.3-5.1) mmol/L Chloride 108 (96-108) mmol/L Carbon Dioxide 23 (22-29) mmol/L Anion Gap 16 (12-20) BUN 10 (9-16) mg/dL Creatinine 0.81 (0.5-1.4) mg/dL Estim Creat Clear Calc 138.8 Estimated GFR > 60 Random Glucose 101 (60-115) mg/dL Calcium 9.2 (8.4-10.2) mg/dL Total Bilirubin 1.0 (0.0-1.0) mg/dL AST 58 H (5-37) U/L ALT 74 H (0-40) U/L Alkaline Phosphatase 77 (39-117) U/L Total Protein 7.9 (6.5-8.0) g/dL Albumin 4.3 (3.5-5.0) g/dL Salicylates < 5.0 L (15-30) mg/dL Acetaminophen < 3 (<30) mcg/mL Ethyl Alcohol 382 H* mg/dL Discharge Plan Discharge Clinical Impression: Alcoholic intoxication Prescriptions: No Action No Known Home Meds Print Language: Faroese
--- NOTE | 2024-10-23 10:02 | PC.NURSE ---
Care of Pt assumed at change of shift. Pt is noted to be sleeping comfortably. ED Provider at bedside for eval. Pt wake easily and is able to demonstrate safe and steady balance and movements. electroplater apprentice at bedside for eval---Per RN, Pt declined recovery care. Pt continues to rest comfortably with eyes closed. Awaiting dispo.
[2024-10-23 10:36] VITALS: BP 00/00; PULSE 0; RESP 0; TEMP -17.7; TEMP 0
== END 2024-10-23 10:55 | disposition home or self-care (01) ==
PROVIDERS: Emergency Provider Emergency Medicine
DX: F10.129 Alcohol abuse with intoxication, unspecified (principal); Y90.8 Blood alcohol level of 240 mg/100 ml or more; R00.0 Tachycardia, unspecified; F17.210 Nicotine dependence, cigarettes, uncomplicated; F12.90 Cannabis use, unspecified, uncomplicated
CPT/HCPCS: 36415; 80053; 80143; 80179; 80307; 85025; 93005; 99284; S9485

== ENCOUNTER → 2024-10-23 03:59 | Outpatient (BNV) | payer OTHER, SELFPAY | PROVIDERS: Emergency Provider Emergency Medicine; Visit Provider Internal Medicine Cardiovascular Disease | DX: R00.0 Tachycardia, unspecified (principal) | CPT/HCPCS: 93010 ==

== ENCOUNTER 2024-10-24 00:14 | Emergency (ER) | payer OTHER, SELFPAY ==
[2024-10-24 00:53] VITALS: BP 152/96; PULSE 110; O2SAT 96
[2024-10-24 00:55] VITALS: BP 131/64; PULSE 101; RESP 16; TEMP 36.6; O2SAT 93; BMI 22.4
--- NOTE | 2024-10-24 02:18 | ED.GENADULT ---
HPI - General Adult General Chief complaint: General Medical Stated complaint: anxiety Time Seen by Provider: 10/24/24 01:25 Source: patient Mode of arrival: ambulatory Limitations: no limitations History of Present Illness ED Provider: Dr. Mariel Ag HPI narrative: Patient comes to the emergency room complaining of anxiety and having muscle spasms of the last 72 hours. patient denies SI or HI. Patient denies any chest pain or shortness of breath Related Data Home Medications ?Medication ?Instructions ?Recorded ?Confirmed No Known Home Meds 10/11/24 10/11/24 Allergies Allergy/AdvReac Type Severity Reaction Status Date / Time Milk Containing Products AdvReac Gastrointestinal Verified 10/24/24 01:01 (Dairy) Upset Review of Systems Review of Systems: Constitutional : No Weight loss, No Fever, No Chills, No Night Sweats, No Fatigue, No Malaise ENT/Mouth : No Hearing loss, No Ear Pain, No Nasal Congestion, No Sinus Pain, No Hoarseness, No sore throat, No Rhinorrhea, No Swallowing Difficulty Eyes: No Eye Pain, No Swelling, No Redness, No Foreign Body, No Discharge, No Vision Changes Cardiovascular : No Chest Pain, No SOB, No Dyspnea on Exertion, No Orthopnea, No Edema, No Palpitations Respiratory : No Cough, No Sputum, No Wheezing, No Smoke Exposure, No Dyspnea Gastrointestinal : No Nausea, No Vomiting, No Diarrhea, No Constipation, No abdominal Pain, No Hematochezia, No Melena Genitourinary : no irregular bleeding, No Dysuria, No Urinary Frequency, No Hematuria, No Urinary Incontinence, No Urgency, No Flank Pain, No Urinary Flow Changes, No Hesitancy Musculoskeletal : No joint pain, No Myalgias, No Joint Swelling Skin : No Skin Lesions, No rash Neuro : No Weakness, No Numbness, No Paresthesias, No Loss of Consciousness, No Dizziness, No Headache, complaining of muscle spasms Psych : complaining of anxiety Heme/Lymph: No Bruising, No Bleeding,No Lymphadenopathy Endocrine : No Polyuria, No Polydipsia, No Temperature Intolerance PMF Past Medical History Medical History Alcohol dependence Social History Social History Unable to assess alcohol history related to: Unknown Alcohol intake: current Alcohol intake frequency: 3 or more drinks per day Alcohol type: beer Patient Tobacco Use Status: Current everyday Tobacco user Substance Use Type: Marijuana Advance Directives: No Advance Directives Information Provided: Yes Physical Exam ED Vital Signs: Vital Signs - 24 hr 10/24/24 00:55 Temperature 98 F Pulse Rate 101 H Respiratory Rate 16 Blood Pressure 131/64 Pulse Oximetry 93 Oxygen Delivery Method Room Air BMI result Body Mass Index 22.4 Const Other: Appearance: Alert. Oriented X3. No acute distress. somnolent but easily arousable Eyes: Pupils equal, round and reactive to light. ENT: Pharynx normal. Neck: Normal inspection. Neck supple. No lymph nodes noted. No crepitus CVS: Normal heart rate and rhythm. Pulses normal. Normal S1 and S2 Respiratory: No respiratory distress. Breath sounds normal. No Wheezing. No rales Abdomen: Soft and nontender. No rigidity. No distention. Skin: Skin warm and dry. Normal skin color. Normal skin turgor. Extremities: No lower extremity edema. No Lacerations. No Rash Neuro: Oriented X 3. No motor deficit. No sensory deficit. Moving all extremities. No slurred speech. CN 2 through 12 grossly intact, no twitching or spasms present Psych: calm, cooperative, normal affect Medical Decision Making Medical Decision Making MDM Narrative: patient is no longer having any spasms. This is the 3rd visit that patient comes, mostly related to alcohol. Patient's vitals stable earlier today, the care team assess the patient. Patient declined any help for alcohol abuse. Discharge Plan Discharge Clinical Impression: Anxiety Patient Disposition: Home, Self-Care Instructions: Anxiety (ED) Additional Instructions: Please follow-up with your primary care physician tomorrow. If you have any worsening or new symptoms, please return to the emergency room or call 911 Prescriptions: No Action No Known Home Meds Print Language: Tamazight
[2024-10-24 02:21] VITALS: BP 133/77; PULSE 84; RESP 16; TEMP 36.8; O2SAT 97
[2024-10-24 03:30] VITALS: BP 133/77; PULSE 84; RESP 16; TEMP 36.8; O2SAT 97
== END 2024-10-24 04:12 | disposition home or self-care (01) ==
PROVIDERS: Emergency Provider Emergency Medicine
DX: F41.9 Anxiety disorder, unspecified (principal); M62.838 Other muscle spasm; F17.200 Nicotine dependence, unspecified, uncomplicated
CPT/HCPCS: 99282; 99283